=== PATIENT | male | born 1960 | race Caucasian/White ===

== ENCOUNTER 2023-02-11 06:45 | Day surgery (SDC) | payer OTHER ==
[~2023-02-11] VITALS: Ht 185.4 cm; Wt 61.0 kg
[2023-02-11] VITALS (255 sets, daily range): BP systolic 83–139; BP diastolic 49–115
[2023-02-11] MEDS ORDERED: VENTOLIN HFA108 MCG PO (08:55)
[2023-02-11 11:20] LABS: BASO% 0.5 % (0-3); EOS% 4.8 % (0-8); HEMATOCRIT 45.1 % (39.0-50.0); HEMOGLOBIN 13.9 g/dl (14.0-18.0); IMMATURE GRANULOCYTES 0.2 % (0.0-5.0); LYMPH% 25.9 % (15-41); MEAN CELL VOLUME 88.3 fL CALC (80.0-100.0); MEAN CORPUSCULAR HGB 27.2 pG CALC (26.0-32.0); MEAN CORPUSCULAR HGB CONC 30.8 g/dL CAL (32.0-36.0); MONO% 9.5 % (2-13); NEUT# 3.35 thou/uL (1.82-7.42); NEUT% 59.1 % (42-76); RED BLOOD COUNT 5.11 mill/uL (4.70-6.10); RED CELL DISTRI WIDTH 14.3 % (11.5-15.5)
[2023-02-11 11:35] LABS: ALBUMIN 3.3 g/dL (3.2-5.0); ALKALINE PHOSPHATASE 82 u/l (38-126); ANION GAP 7 (6-22 (CALC)); BILIRUBIN, TOTAL 0.3 mg/dL (0.2-1.3); BUN 21 mg/dL (8-23); BUN/CREATININE RATIO 22 (12-20 (CALC)); CARBON DIOXIDE 34 mmol/l (22-30); CHLORIDE 100 mmol/l (95-108); GFR FOR AFR.AMER. > 60 ML/MIN (>=60 (CALC)); GFR OTHER RACES > 60 ML/MIN (>=60 (CALC)); POTASSIUM 4.4 mmol/l (3.5-5.1); SGOT/AST 38 u/l (19-48); SODIUM 137 mmol/l (137-146); TOTAL PROTEIN 6.6 g/dL (6.3-8.2)
[2023-02-11] MEDS ORDERED: NALTREXONE50 MG PO (17:26)
[2023-02-11] MEDS ORDERED: KLONOPIN2 MG PO (17:27)
[2023-02-11] MEDS ORDERED: CLONIDINE0.1 MG PO (17:27)
[2023-02-12 04:15] VITALS: BP 119/65
[2023-02-12 05:47] LABS: BASO% 0.2 % (0-3); HEMATOCRIT 48.4 % (39.0-50.0); HEMOGLOBIN 15.4 g/dl (14.0-18.0); IMMATURE GRANULOCYTES 0.4 % (0.0-5.0); LYMPH% 9.4 % (15-41); MEAN CELL VOLUME 85.4 fL CALC (80.0-100.0); MEAN CORPUSCULAR HGB 27.2 pG CALC (26.0-32.0); MEAN CORPUSCULAR HGB CONC 31.8 g/dL CAL (32.0-36.0); MONO% 1.5 % (2-13); NEUT# 8.41 thou/uL (1.82-7.42); NEUT% 88.5 % (42-76); RED BLOOD COUNT 5.67 mill/uL (4.70-6.10); RED CELL DISTRI WIDTH 14.3 % (11.5-15.5)
[2023-02-12 06:03] LABS: ALBUMIN 3.6 g/dL (3.2-5.0); ALKALINE PHOSPHATASE 100 u/l (38-126); BUN 20 mg/dL (8-23); BUN/CREATININE RATIO 22 (12-20 (CALC)); CHLORIDE 105 mmol/l (95-108); CREATININE 0.9 mg/dL (0.7-1.3); GFR FOR AFR.AMER. > 60 ML/MIN (>=60 (CALC)); GFR OTHER RACES > 60 ML/MIN (>=60 (CALC)); MAGNESIUM 2.8 mg/dL (1.6-2.3); POTASSIUM 4.4 mmol/l (3.5-5.1); SGOT/AST 31 u/l (19-48); SODIUM 137 mmol/l (137-146)
[2023-02-12 06:07] LABS: ANION GAP 11 (6-22 (CALC)); BILIRUBIN, TOTAL 0.8 mg/dL (0.2-1.3); CARBON DIOXIDE 25 mmol/l (22-30)
[2023-02-12 07:44] VITALS: BP 118/69
[2023-02-12 09:35] VITALS: BP 118/69
== END 2023-02-12 16:15 | disposition left against medical advice (07) | DRG 894 ==
LOC: ANR 06:45 → MS2 07:01 → ANR 02-12 16:15 → MS2 02-12 16:15
PROVIDERS: ATTEND Anesthesiology Critical Care Medicine
DX: F11.20 Opioid dependence, uncomplicated (principal)
CPT/HCPCS: J0131; J2354; J3475